=== PATIENT | male | born 1960 | race Two or more races ===

== ENCOUNTER 2016-09-09 21:15 | Emergency (ER) | payer MEDICAID, OTHER ==
[~2016-09-09] VITALS: Ht 177.8 cm; Wt 90.7 kg
[2016-09-09 21:29] VITALS: BP 126/83
[2016-09-09] MEDS ORDERED: Valproate Sodium INJ 500 MG in D5W 55 ML IVPB ONE (21:30)
[2016-09-09 21:51] LABS: BASOPHILS % (AUTO) 0.9 % (0.0-2.0); LYMPHOCYTES % (AUTO) 44.1 % (20.0-45.0); MEAN CORPUSCULAR HEMOGLOBIN 31.4 PG (27.0-31.0); MEAN CORPUSCULAR HGB CONC 34.2 G/DL (32.0-36.0); MEAN CORPUSCULAR VOLUME 92 FL (80-99); MEAN PLATELET VOLUME 6.1 FL (6.5-10.1); MONOCYTES % (AUTO) 4.7 % (1.0-10.0); NEUTROPHILS % (AUTO) 47.4 % (45.0-75.0); PLATELET COUNT 269 K/UL (150-450); RED BLOOD COUNT 5.32 M/UL (4.70-6.10); RED CELL DISTRIBUTION WIDTH 12.4 % (11.6-14.8); WHITE BLOOD COUNT 15.4 K/UL (4.8-10.8)
[2016-09-09] MEDS ORDERED: carBAMazepine 200mg tab ORAL ONE (22:00)
--- NOTE | 2016-09-09 22:02 | Emergency Room Report ---
History of Present Illness General Chief Complaint: Seizure Source: Patient, EMS Present Illness HPI Patient is a 56-year-old male presented after having witnessed seizure. 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 The patient had no trauma subsequently. The patient prior history of seizure disorder. He reportedly had missed several doses of his seizure medications which were Depakote and Tegretol. He states he was able to take his morning dose of Depakote by had run out of his Tegretol several days ago. Allergies: Coded Allergies: No Known Allergies (Verified , 09/14/11) Patient History Past Medical History: see triage record Reviewed Nursing Documentation: PMH: Agreed, PSxH: Agreed Nursing Documentation-PMH Hx Hypertension: Yes Hx Diabetes: Yes Hx Seizures: Yes Review of Systems All Other Systems: negative except mentioned in HPI Physical Exam Vital Signs Date Time Temp Pulse Resp B/P Pulse Ox O2 Delivery O2 Flow Rate FiO2 09/09/16 21:24 97.5 113 20 126/83 93 Room Air Sp02 EP Interpretation: reviewed, normal General Appearance: normal inspection, well appearing, no apparent distress, alert, GCS 15, obese Head: atraumatic ENT: normal ENT inspection, hearing grossly normal, normal voice, other - right side tongue abrasion Neck: normal inspection, full range of motion, supple, no bony tend Respiratory: normal inspection, lungs clear, normal breath sounds, no respiratory distress, no retraction, no wheezing Cardiovascular #1: no edema, tachycardia Gastrointestinal: normal inspection, normal bowel sounds, non tender, soft, no guarding, no hernia Genitourinary: no CVA tenderness Musculoskeletal: normal inspection, back normal, normal range of motion Neurologic: normal inspection, alert, oriented x3, responsive, e learning specialist III-XII nml as tested, motor strength/tone normal, sensory intact, speech normal Psychiatric: normal inspection, judgement/insight normal, mood/affect normal Skin: normal inspection, normal color, no rash Medical Decision Making Diagnostic Impression: Primary Impression: Seizure disorder Additional Impression: Epileptic seizure, generalized ER Course Patient presented for seizure. Differential diagnosis included cysticercosis, electrolyte abnormality, mass lesion, or cranial hemorrhage. Because of complexity of patient's case laboratory testing and imaging studies were ordered. The patient was given IV fluids as well as IV Depakote. Patient was given oral Tegretol. I EKG interpreted by me showed sinus tachycardia with a rate of [address] or T wave changes. Patient was noted to have inferior Q waves on EKG. The patient and his family were advised to have the patient rechecked by his primary care physician in the next few days. He is advised that he needed followup with cardiology. Troponin was noted to be negative. Laboratory testing showed the low end of therapeutic Depakote level. The patient was given oral Tegretol. The patient is also given IV fluids. The patient's white blood count patient is likely due to seizure.The patient is advised to follow up with primary care doctor in 1-2 days. Patient is advised to return if any worsening condition or if any changes in status that are concerning. Patient is advised not to drive or operate heavy machinery until cleared by his physician. Labs Test 09/09/16 21:35 White Blood Count 15.4 K/UL (4.8-10.8) Red Blood Count 5.32 M/UL (4.70-6.10) Hemoglobin 16.7 G/DL (14.2-18.0) Hematocrit 48.8 % (42.0-52.0) Mean Corpuscular Volume 92 FL (80-99) Mean Corpuscular Hemoglobin 31.4 PG (27.0-31.0) Mean Corpuscular Hemoglobin Concent 34.2 G/DL (32.0-36.0) Red Cell Distribution Width 12.4 % (11.6-14.8) Platelet Count 269 K/UL (150-450) Mean Platelet Volume 6.1 FL (6.5-10.1) Neutrophils (%) (Auto) 47.4 % (45.0-75.0) Lymphocytes (%) (Auto) 44.1 % (20.0-45.0) Monocytes (%) (Auto) 4.7 % (1.0-10.0) Eosinophils (%) (Auto) 3.0 % (0.0-3.0) Basophils (%) (Auto) 0.9 % (0.0-2.0) Sodium Level 140 mEQ/L (135-145) Potassium Level 3.6 mEQ/L (3.4-4.9) Chloride Level 98 mEQ/L (98-107) Carbon Dioxide Level 20 mEQ/L (20-30) Anion Gap 22 (5-15) Blood Urea Nitrogen 16 mg/dL (7-23) Creatinine 0.7 mg/dL (0.7-1.2) Estimat Glomerular Filtration Rate > 60 mL/min (>60) Glucose Level 152 mg/dL (74-106) Calcium Level 8.5 mg/dL (8.6-10.2) Total Bilirubin < 0.2 mg/dL (0.0-1.2) Aspartate Amino Transf (AST/SGOT) 15 U/L (5-40) Alanine Aminotransferase (ALT/SGPT) 14 U/L (3-41) Alkaline Phosphatase 61 U/L (40-129) Troponin I < 0.30 ng/mL (<=0.30) Total Protein 7.2 g/dL (6.6-8.7) Albumin 4.1 g/dL (3.5-5.2) Globulin 3.1 g/dL Albumin/Globulin Ratio 1.3 (1.0-2.7) Valproic Acid (Depakene) Level 51 ug/mL (50-100) EKG Diagnostic Results Rate: tachycardiac - 109 Rhythm: NSR ST Segments: no acute changes Rhythm Strip Diag. Results EP Interpretation: yes Rhythm: no PVC's, no ectopy Last Vital Signs Date Time Temp Pulse Resp B/P Pulse Ox O2 Delivery O2 Flow Rate FiO2 09/09/16 21:49 115 18 Room Air 09/09/16 21:29 98.1 126/83 94 Status: improved Disposition: HOME, SELF-CARE Condition: Stable Scripts Carbamazepine (TEGRETOL*) 200 Mg Tablet 200 MG PO Q12HR, #60 TAB 0 Refills Prov: Jairo Murrieta 09/09/16 Divalproex Sodium (Depakote) 500 Mg Tablet.dr 500 MG PO BID, #60 TAB Prov: Jairo Murrieta 09/09/16 Referrals: [facility],REFERRING (PCP) Jairo Murrieta Sep 09, 2016 22:02
[2016-09-09] MEDS ORDERED: DEPAKOTE500 MG PO (22:04)
[2016-09-09] MEDS ORDERED: TEGRETOL200 MG PO (22:04)
[2016-09-09 22:08] LABS: TROPONIN I < 0.30 ng/mL (<=0.30)
[2016-09-09 22:11] LABS: ALANINE AMINOTRANSFERASE 14 U/L (3-41); ALBUMIN/GLOBULIN RATIO 1.3 (1.0-2.7); ANION GAP 22 (5-15); ASPARTATE AMINO TRANSFERASE 15 U/L (5-40); CALCIUM 8.5 mg/dL (8.6-10.2); CARBON DIOXIDE 20 mEQ/L (20-30); CHLORIDE 98 mEQ/L (98-107); CREATININE 0.7 mg/dL (0.7-1.2); GLOMERULAR FILTRATION RATE > 60 mL/min (>60); HEMOLYSIS 10; POTASSIUM 3.6 mEQ/L (3.4-4.9); SODIUM 140 mEQ/L (135-145); TOTAL PROTEIN 7.2 g/dL (6.6-8.7); VALPROIC ACID 51 ug/mL (50-100)
[2016-09-09 23:00] VITALS: BP 115/76
--- NOTE | 2016-09-10 12:12 | Cardiology Report ---
APPROVED REPORT EKG Measurement Heart [id number] Sinus tachycardia Minimal voltage criteria for LVH, may be normal variant Inferior infarct, age undetermined Abnormal ECG
== END 2016-09-09 23:04 | disposition home or self-care (01) ==
LOC: EDBD 21:15 → EMR 21:30
DX: G40.409 Other generalized epilepsy and epileptic syndromes, not intractable, without status epilepticus (principal); E11.9 Type 2 diabetes mellitus without complications; I10 Essential (primary) hypertension; Z91.14 Patient's other noncompliance with medication regimen
CPT/HCPCS: 36415; 80053; 80164; 82962; 84484; 85025; 93005; 96374; 96375; 99284; J2405; J7040